=== PATIENT | male | born 1985 | race Caucasian/White ===

== ENCOUNTER 2018-08-06 14:57 | Emergency (ER) | payer OTHER ==
[~2018-08-06] VITALS: Ht 185.4 cm; Wt 111.4 kg
[2018-08-06 15:04] VITALS: BP 167/84; TEMP 98.8
[2018-08-06] MEDS ORDERED: PRINIVIL5 MG PO (15:07)
[2018-08-06] MEDS ORDERED: VIGAMOX 0.5% 3 M3 ML OP (15:40)
[2018-08-06] MEDS ORDERED: NORCO 325 MG-51 TAB PO (15:43)
[2018-08-06 16:06] VITALS: PULSE 70
== END 2018-08-06 16:27 | disposition home or self-care (01) ==
LOC: COL.ER 14:57
DX: S05.02XA Injury of conjunctiva and corneal abrasion without foreign body, left eye, initial encounter (principal); X58.XXXA Exposure to other specified factors, initial encounter

== ENCOUNTER 2022-04-05 03:25 | Emergency (ER) | payer OTHER ==
[~2022-04-05] VITALS: Ht 188 cm; Wt 114.5 kg
[~2022-04-05 03:25] MED LIST: NORCO 325 MG-51 TAB PO; PRINIVIL5 MG PO; VIGAMOX 0.5% 3 M3 ML OP
[2022-04-05 03:33] VITALS: BP 162/94; PULSE 66; TEMP 97.9
[2022-04-05] MEDS ORDERED: NORCO 325 MG-51 TAB PO (03:49)
== END 2022-04-05 04:00 | disposition home or self-care (01) ==
LOC: COL.ER 03:25
DX: K13.0 Diseases of lips (principal)

== ENCOUNTER → 2023-04-27 | Outpatient (CLI) | payer OTHER ==
[~2023-04-27] MED LIST changes: +PREDNISONE50 MG PO; +VALTREX1 GM PO
== END ==
LOC: MHCPAIN 01-26 13:22
DX: M47.817 Spondylosis without myelopathy or radiculopathy, lumbosacral region (principal); M54.50 Low back pain, unspecified
CPT/HCPCS: J0665

== ENCOUNTER → 2023-09-11 | Outpatient (CLI) | payer OTHER ==
[~2023-09-11] MED LIST changes: +Lidocaine PF 2% (20 MG/ML) 5 ML VIAL ONE; +Midazolam 2 MG/2 ML VIAL ONE; +fentaNYL 50 MCG/ML 2 ML VIAL ONE
== END ==
LOC: MHCPAIN 14:28
DX: M47.817 Spondylosis without myelopathy or radiculopathy, lumbosacral region (principal); M54.50 Low back pain, unspecified
CPT/HCPCS: J0665; J2250; J3010

== ENCOUNTER → 2023-10-04 | Outpatient (CLI) | payer OTHER ==
[~2023-10-04] MED LIST changes: -Lidocaine PF 2% (20 MG/ML) 5 ML VIAL ONE; -Midazolam 2 MG/2 ML VIAL ONE; -fentaNYL 50 MCG/ML 2 ML VIAL ONE
== END ==
LOC: MHCPAIN 15:02
DX: M47.817 Spondylosis without myelopathy or radiculopathy, lumbosacral region (principal); M54.50 Low back pain, unspecified
CPT/HCPCS: G0463

== ENCOUNTER → 2023-11-02 | Outpatient (CLI) | payer OTHER ==
[~2023-11-02] MED LIST changes: +Iohexol 300 - 10 ML VIAL ONE; +Lidocaine PF 2% (20 MG/ML) 2 ML VIAL ONE
== END ==
LOC: MHCPAIN 08:24
DX: M54.16 Radiculopathy, lumbar region (principal)
CPT/HCPCS: J1100; Q9967